=== PATIENT | male | born 1960 | race Caucasian/White ===

== ENCOUNTER 2021-10-06 15:08 | Emergency (ER) | payer SELFPAY ==
--- NOTE | ~2021-10-06 | XR_ITS ---
DATE: 10/06/2021 15:43 INDICATION: Right wrist pain and swelling following a fall one week ago TECHNIQUE: 4 views COMPARISON: None FINDINGS: There is a comminuted intra-articular fracture of the distal radius. No significant displac ement is noted. There is mild dorsal inclination of distal radial articular surface. There is a fracture of the ulnar styloid process. Normal alignment at the radiocarpal joint. IMPRESSION: Comminuted intra-articular fracture distal radius Fracture of ulnar styloid process Reviewed, dictated and finalized at location A.
[2021-10-06 15:22] VITALS: BP 133/86; PULSE 102; RESP 18; TEMP 35.9; O2SAT 96
--- NOTE | 2021-10-06 15:28 | ED.GENADULT ---
HPI - General Adult General Chief complaint: Extremity Injury, Upper Stated complaint: rt arm injury/fall History of Present Illness HPI narrative: Patient is a 61-year-old male who presents to the [facility] via POV for evaluation of a right wrist injury that occurred 1 week ago. Additionally, he reports falling downstairs after accidentally tripping over close he was carrying. He also reports hitting his head with loss of consciousness. He reports moderate swelling and pain noted to right wrist and hand. Symptoms are improving with ice and ibuprofen. Pain worsens with movement. Denies compression therapy. Related Data Home Medications Medication Instructions Recorded Confirmed No Home Medications 10/06/21 10/06/21 Allergies Allergy/AdvReac Type Severity Reaction Status Date / Time No Known Allergies Allergy Verified 10/06/21 15:34 Review of Systems Review of Systems: Pertinent negatives: fever, chills, sweats, change in appetite, poor p.o. intake, headache, dizziness, lymphadenopathy, vision changes, swelling, numbness, tingling, loss of sensation, deformity, decreased range of motion, weakness,weakness, syncope, vertigo, LOC, seizure activity, memory loss, difficulty with coordination/gait/equilibrium, paresthesias, abdominal pain, nausea, vomiting, diarrhea, constipation, shortness of breath, cough, chest pain, and heart palpitations/murmurs. Pertinent positives, warmth and erythema. PMFSH Social History Social History Smoking status: Never smoker Alcohol intake: current Exam Narrative: GENERAL: Well-appearing, well-nourished, and in no acute distress. HEAD: Normocephalic, atraumatic. NECK: Supple. No Lymphadenopathy or nuchal rigidity appreciated. CHEST: Bilateral lung lam are clear to auscultation. No respiratory distress. No evidence of cough or pleuritic cp upon examination. HEART: Regular rate and rhythm. No murmur, gallop, or rub heard. EXTREMITIES: Moderate swelling noted to right distal wrist and hand. Moderate generalized pain is elicited with palpation to right wrist. Decreased active/passive ROM of right hand and wrist secondary to swelling. No evidence of deformity, cyanosis, necrosis, or laceration. No evidence of dislocation, ligament laxity, effusion, or pain at rest. Pulses palpable at 2+, strength 5/5, and cap refill < 3 seconds in affected extremity. DTRs normal. Gait normal. SKIN: Warm, dry, no rash. NEURO: No focal deficits. Alert and oriented x3. Course Course Level of Care: Express Care Visit Vital Signs Vital signs: Vital Signs Temperature 96.7 F L 10/06/21 15:22 Pulse Rate 102 H 10/06/21 15:22 Respiratory Rate 18 10/06/21 15:22 Blood Pressure 133/86 10/06/21 15:22 Pulse Oximetry 96 10/06/21 15:22 Oxygen Delivery Room Air 10/06/21 15:22 Temperature 96.7 F L 10/06/21 15:22 Pulse Rate 102 H 10/06/21 15:22 Respiratory Rate 18 10/06/21 15:22 Blood Pressure 133/86 10/06/21 15:22 Pulse Oximetry 96 10/06/21 15:22 Oxygen Delivery Room Air 10/06/21 15:22 reviewed Procedures Orthopedic Splinting/Casting Injury #1: Splinting/Casting Date: 10/06/21 Splinting/Casting Time: 16:07 Side: right Upper Extremity Injury Location: wrist and hand Upper Extremity Immobilizer: sugar tong splint OCL: sugar tong Pre-Procedure Neuro Vascular Exam: normal Post-Procedure Neuro Vascular Exam: normal Medical Decision Making Differential Diagnosis Differential Diagnosis: Sprain, strain, cellulitis, open fracture, closed fracture, gout Vital Signs Vital Signs: Vital Signs Temperature 96.7 F L 10/06/21 15:22 Pulse Rate 102 H 10/06/21 15:22 Respiratory Rate 18 10/06/21 15:22 Blood Pressure 133/86 10/06/21 15:22 Pulse Oximetry 96 10/06/21 15:22 Oxygen Delivery Room Air 10/06/21 15:22 Temperature 96.7 F L 10/06/21 15:22 Pulse Rate 102 H 10/06/21 15:22 Resp
== END 2021-10-06 16:22 | disposition home or self-care (01) ==
PROVIDERS: Emergency Provider Nurse Practitioner Family
DX: S52.501A Unspecified fracture of the lower end of right radius, initial encounter for closed fracture (principal); S52.611A Displaced fracture of right ulna styloid process, initial encounter for closed fracture; W10.9XXA Fall (on) (from) unspecified stairs and steps, initial encounter
CPT/HCPCS: 29125; 73110; 99214; A4565; G0463

== ENCOUNTER 2021-10-08 12:08 | Emergency (ER) | payer SELFPAY ==
[2021-10-08 12:20] VITALS: BP 159/94; PULSE 105; RESP 18; TEMP 36.4; O2SAT 97
--- NOTE | 2021-10-08 12:33 | ED.UPPEXIN ---
HPI - Extremity Injury (Upper) General Chief Complaint: Skin/Abscess/Foreign Body Stated Complaint: Fingers Rt hand Swelling Source: patient Mode of arrival: ambulatory Limitations: no limitations History of Present Illness HPI narrative: 61-year-old male presents to urgent care with complaints of pressure and discoloration to his right fingers since this AM after having an OCL sugar tong splint placed to his right arm here 2 days ago. Patient denies numbness or tingling to his fingers but reports that he has a pressure type sensation and discoloration to his right fingers since splint was applied. Patient was evaluated here 2 days ago and diagnosed with a distal radius and ulna fracture after falling 1 week prior. Patient reports that he has not scheduled appointment with orthopedics at this time. Patient has been wearing sling also to his right arm. Patient reports that he did have swelling noted to his right hand prior to splint being applied MD complaint: injury to: right, hand and finger Onset (ago): hour(s) (5) Other Extremity Injury: Right: fingers Associated symptoms: denies other symptoms Treatments prior to arrival: splint Related Data Home Medications Medication Instructions Recorded Confirmed No Home Medications 10/06/21 10/06/21 Allergies Allergy/AdvReac Type Severity Reaction Status Date / Time No Known Allergies Allergy Verified 10/08/21 12:35 Review of Systems Constitutional: Constitutional: Denies chills, Denies fatigue and Denies fever(s) Cardiovascular: Cardiovascular: Denies chest pain and Denies rapid heart rate Respiratory: Respiratory: Denies chest congestion, Denies cough, Denies dyspnea and Denies wheezing Gastrointestinal: Gastrointestinal: Denies abdominal pain, Denies bloating, Denies constipation and Denies heartburn Musculoskeletal: Musculoskeletal: Reports arthralgias and Reports joint swelling Comments: Pressure type sensation and discoloration noted to right fingers Neurologic: Denies vertigo and Denies dizziness PMFSH Social History Social History Smoking status: Never smoker Alcohol intake: current Comments At time of signature, I agree with nursing past medical, surgical, social and family history. There is no relevant family history pertinent to the presenting complaint. Exam Const: General: healthy appearing Nutritional Appearance: well nourished Orientation/consciousness: patient oriented x3 Limitations: no limitations Neck: Neck: normal visual inspection Resp: Effort & Inspection: normal respiratory effort and not labored Auscultation: clear to auscultation bilaterally and no crackles Cardio: Rate: regular rate Rhythm: regular rhythm Heart sounds: no murmurs Skin: Rashes: no rashes Wounds: no wounds Other: Moderate amount of bruising noted to inner aspect of right forearm; mild bruising noted to right fingers with mild swelling noted to distal aspect of right hand. Capillary refill normal to right fingers. Neuro: General: patient oriented x3 and moves all extremities Speech: normal speech Gait exam (Neuro): Normal gait present Extrem: General: no pedal edema Other: Mild swelling noted to dorsal aspect of right hand and right fingers. There is moderate bruising noted to inner aspect of right forearm. Mild bruising and discoloration noted to right fingers. Capillary refill is normal to right fingers. Skin is warm and dry. Psych: Mental Status: mental status grossly normal Affect: normal affect Attitude: cooperative Course Course Level of Care: Express Care Visit Vital Signs Vital signs: Vital Signs Temperature 36.4 C L 10/08/21 12:20 Pulse Rate 105 H 10/08/21 12:20 Respiratory Rate 18 10/08/21 12:20 Blood Pressure 159/94 H 10/08/21 12:20 Pulse Oximetry 97 10/08/21 12:20 Oxygen Delivery Room Air 10/08/21 12:20 Temperature 36.4 C L 10/08/21 12:20 Pulse Rate
== END 2021-10-08 13:10 | disposition home or self-care (01) ==
PROVIDERS: Emergency Provider Nurse Practitioner Family
DX: Z46.89 Encounter for fitting and adjustment of other specified devices (principal); F17.200 Nicotine dependence, unspecified, uncomplicated
CPT/HCPCS: 99212; G0463